=== PATIENT | female | born 1980 | race Caucasian/White ===

== ENCOUNTER → 2023-12-04 15:36 | Outpatient (REF) | payer OTHER, SELFPAY | LOC: WDC 15:36 | PROVIDERS: ATTENDING PHYSICIAN Nurse Practitioner | DX: Z12.31 Encounter for screening mammogram for malignant neoplasm of breast (principal) | CPT/HCPCS: 77063; 77067 ==

== ENCOUNTER → 2025-01-06 08:19 | Outpatient (REF) | payer BC, SELFPAY | LOC: WDC 08:19 | PROVIDERS: ATTENDING PHYSICIAN Nurse Practitioner Family | DX: Z12.31 Encounter for screening mammogram for malignant neoplasm of breast (principal) | CPT/HCPCS: 77063; 77067 ==

== ENCOUNTER 2025-01-18 17:36 | Emergency (ER) | payer BC, SELFPAY ==
[2025-01-18 17:41] VITALS: BP 105/68
[2025-01-18 21:47] VITALS: BMI 27.9
--- NOTE | 2025-01-18 22:20 | ED.GENMED ---
History of Present Illness
General
Chief Complaint: Musculo-Skeletal Complaint
Source: patient
Exam Limitations: none
Time Seen by Provider: 01/18/25 21:44
Nursing documentation reviewed up to this point in time: agreed with
History of Present Illness
History of Present Illness:
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
fever no other joint aches, does think she was bitten by a tick recently, no calf pain no chest pain or shortness of breath she was initially worried about a blood clot she is traveling tomorrow
Past History
Past History
ED Past Medical History: Other (RA)
Social History
Tobacco: Non-smoker
Alcohol: None
Drug: None
Personal:
Living: with family
Employment: Employed
Phy Exam
Physical Exam
Physical Exam:
Physical Exam
General: no apparent distress, not acutely ill
Neck: No jaw
Heart: s1/s2 regular rate and rhythm, no murmur. equal radial pulses.
Lungs: no acute respiratory distress. clear bilaterally
Neuro: alert and oriented. no focal neurological deficits
Skin: no rash
Psychiatric: well kept. interactive and cooperative
Extremities: Right lower extremity no calf pain no cords, no inflammation on the extensor tendons no tenderness in the medial lateral malleolus
Course
Orders/Labs/Results
Orders:
Orders
01/18/25 22:04
CBC/With ESR Urgent
01/18/25 22:05
CRP [C-Reactive Protein] Urgent
Comprehensive Metabolic Panel Urgent
Lyme Progressive Urgent
Vital Signs
Initial and Last Documented VS:
Initial Vital Signs
Temp Pulse Resp BP Pulse Ox
98.5 F 88 16 105/68 98
05/20/25 17:41 01/18/25 17:41 01/18/25 17:41 01/18/25 17:41 01/18/25 17:41
Last Documented Vital Signs
Temp Pulse Resp BP Pulse Ox
98.5 F 88 16 105/68 98
01/18/25 17:41 01/18/25 17:41 01/18/25 17:41 01/18/25 17:41 01/18/25 17:41
MDM/Problems Addressed
Differential Diagnosis Includes:
Neuropathy, rheumatologic issue gouty issue doubt cellulitis no signs of DVT no signs of septic joint
MDM/Problems Addressed:
Burning right inner ankle
Chronic conditions affecting care:
RA
Acute Exacerbation and/or Progression of Chronic Illness:
RA
*Pulse Oximetry
Patient hypoxic: no
*Critical Care Note
Total Time (30-74mins, 75-104mins- exclusive of procedures): Not Applicable
Update Note
Update Note:
Etiology not entirely clear patient was most concerned about the DVT which her history is not consistent with, will check some blood work inflammatory markers she does have a PCP follow-up scheduled give her prescription for gabapentin which she
will consider taking
ED Attending Note
-
Portions of this chart may have been created with voice recognition software.� Occasional wrong word or��sound alike� substitutions may have occurred due to the inherent limitations of voice recognition software.
Discharge Plan
Departure
Patient Disposition: Home (Routine Discharge)
Date of Disposition: 01/18/25
Time of Disposition: 22:05
Patient with high blood pressure during this ER visit?: No
Condition: Good
Discharge Problem:
Neuropathy
Prescriptions:
New
gabapentin 100 mg capsule
100 mg PO TID Qty: 30 0RF
No Action
acetaminophen 325 MG tablet
650 mg PO Q4HPRN PRN (Reason: mild pain) 0RF
sennosides-docusate sodium 1 TABLET tablet
1 tab PO DAILYPRN PRN (Reason: constipation) Qty: 30 0RF
ferrous sulfate [FeroSul] 325 MG tablet
325 mg PO BID Qty: 60 0RF
ibuprofen 600 MG tablet
600 mg PO Q6HPRN PRN (Reason: moderate pain/cramps) Qty: 60 0RF
Referrals:
UNKNOWN,NO INTERVIEW [Family Provider] -
Activity Restrictions/Additional Instructions:
Follow-up with your primary care provider and steam crane operator as scheduled
Interventions
Interventions:
*Risk Screen - Suicide Last Done: 01/18/25 17:44
*General Assessment Last Done: 01/18/25 21:47
*Neglect/Abuse Screening Last Done: 01/18/25 17:44
*ED- Fall Risk Assessment Last Done: 01/18/25 21:47
*ED COVID-19 Vaccine History Last Done: 01/18/25 21:47
ED-Musculoskeletal Assessment Last Done: 01/18/25 21:47
Discharge Date and Time
Print Language: LATVIAN
[2025-01-18 22:37] LABS: % Basophils 0.8 % (0-2); % Eosinophils 4.3 % (0-6); % Immature Granulocytes 0.1 % (0-0.5); % Monocytes 6.4 % (1.7-9.3); % Neutrophils 48.4 % (42.2-75.2); Absolute Basophils 0.1 10^3/uL (0-0.2); Absolute Eosinophils 0.3 10^3/uL (0-0.7); Absolute Lymphocytes 3.2 10^3/uL (1.2-3.4); Absolute Monocytes 0.5 10^3/uL (0.1-0.6); Absolute Neutrophils 3.9 10^3/uL (1.4-6.5); Hematocrit 39.6 % (37.0-47.0); Hemoglobin 13.3 g/dL (12.0-16.0); Mean Corp Hgb Conc. 33.6 g/dL (33.0-37.0); Mean Corpuscular Hgb 30.1 pg (27.0-31.0); Mean Corpuscular Volume 89.6 fL (81.0-99.0); Mean Platelet Volume 10.4 fL (7.4-10.4); Nucleated Red Blood Cells % 0 %; Platelet Count 270 10^3/uL (130-400); Red Blood Cell Count 4.42 10^6/uL (4.20-5.40); Red Cell Dist. Width 12.5 % (11.5-14.5)
[2025-01-18 22:45] LABS: Erythrocyte Sed Rate 17 mm/hour (0-20)
[2025-01-18 22:54] LABS: ALT (SGPT) 17 U/L (0-35); AST (SGOT) 19 U/L (14-36); Albumin 4.6 g/dl (3.5-5.0); Alkaline Phosphatase 67 U/L (38-126); Blood Urea Nitrogen 20 mg/dl (7-17); Calcium 9.6 mg/dl (8.4-10.2); Carbon Dioxide 29 mmol/L (22-30); Chloride 107 mmol/L (98-107); Estimated Creatinine Clearance 82 ml/min; Glucose 87 mg/dl (70-99); Potassium 4.5 mmol/L (3.5-5.1); Sodium 143 mmol/L (135-145); Total Bilirubin 0.7 mg/dl (0.2-1.3); Total Protein 7.4 g/dl (6.3-8.2); eGFR > 60.00
[2025-01-18 23:11] LABS: C-Reactive Protein < 5.00 mg/L (0.0-10.00)
[2025-01-20 13:11] LABS: Lyme Antibody Screen, EIA Negative (Negative)
== END 2025-01-18 22:41 | disposition home or self-care (01) ==
LOC: EMR 17:36
PROVIDERS: EMERGENCY PHYSICIAN Emergency Medicine
DX: G62.9 Polyneuropathy, unspecified (principal)
CPT/HCPCS: 99283; 80053; 85025; 85652; 86140; 86618